=== PATIENT | male | born 1995 | race Caucasian/White ===

== ENCOUNTER → 2018-03-06 | Outpatient (CLI) | payer OTHER ==
[~2018-03-06] MED LIST: CIPROFLOXACIN500 M1 PO; FLAGYL500 MG PO; FLOMAX0.4 MG PO; IBUPROFEN 800800 M1 PO; LAMICTAL100 MG PO; NOHOMEMEDICATIONS; ONDANSETRON HCL4 M2 PO; PYRIDIUM200 MG PO; ULTRAM 50MG TAB50 MG PO
[2018-03-06 12:17] LABS: ABSOLUTE BASOPHILS 0.1 thou/uL (0.0-0.2); ABSOLUTE EOSINOPHILS 0.1 thou/uL (0.0-0.7); ABSOLUTE LYMPHOCYTES 3.6 thou/uL (0.8-5.3); ABSOLUTE NEUTROPHILS 4.8 thou/uL (1.6-8.1); BASOPHILS 1.1 %; HEMATOCRIT 37.9 % (42.0-52.0); HEMOGLOBIN 11.9 gm/dL (14.0-18.0); LYMPHOCYTES 37.4 %; MCH 23.6 pg (26.0-34.0); MCHC 31.4 g/dL (28.0-37.0); MCV 74.9 fL (80.0-100.0); MONOCYTES 10.4 %; MPV 7.2 fl. (7.2-11.1); NUCLEATED RBCS 0 /100WBC; PLATELET COUNT* 417 thou/uL (150-400); POLYS 50.1 %; RBC 5.06 mil/uL (4.50-6.00); RDW-CV 15.7 % (10.5-14.5); WBC 9.7 thou/uL (4.0-11.0)
[2018-03-06 12:35] LABS: ALBUMIN 3.8 g/dL (3.4-5.0); CREATININE 1.1 mg/dL (0.6-1.3); TOTAL BILIRUBIN 0.4 mg/dL (<0.1-1.0); TOTAL PROTEIN 7.6 g/dL (6.4-8.2)
[2018-03-07 16:24] LABS: % SATURATION 4 % (20-39); IRON 22 ug/dL (50-175)
== END ==
LOC: M.LAB 11:17
PROVIDERS: Family Medicine
DX: K92.0 Hematemesis (principal)

== ENCOUNTER → 2019-11-11 | Outpatient (CLI) | payer BC | LOC: M.ULTRA 12:55 | PROVIDERS: ATTEND Family Medicine | DX: K76.0 Fatty (change of) liver, not elsewhere classified (principal); K92.0 Hematemesis; R19.7 Diarrhea, unspecified ==

== ENCOUNTER → 2019-11-18 | Outpatient (CLI) | payer BC | LOC: M.MRI 07:25 | PROVIDERS: ATTEND Family Medicine | DX: K76.0 Fatty (change of) liver, not elsewhere classified (principal); R19.00 Intra-abdominal and pelvic swelling, mass and lump, unspecified site; K76.89 Other specified diseases of liver ==

== ENCOUNTER 2020-01-19 02:14 | Emergency (ER) | payer BC ==
[~2020-01-19] VITALS: Ht 175.3 cm; Wt 117.9 kg
[2020-01-19 02:34] LABS: URINE BILIRUBIN NEGATIVE (Negative); URINE BLOOD 3+ (Negative); URINE CLARITY CLEAR; URINE COLOR YELLOW; URINE GLUCOSE-RANDOM NEGATIVE (Negative); URINE KETONES NEGATIVE (Negative); URINE LEUKOCYTES-REFLEX NEGATIVE (Negative); URINE NITRITE-REFLEX NEGATIVE (Negative); URINE PROTEIN 1+ (Negative); URINE SPECIFIC GRAVITY >= 1.030 (1.005-1.030); URINE UROBILINOGEN 0.2 E.U./dl (0.2-1.0)
[2020-01-19 02:35] LABS: HEMATOCRIT 42.9 % (42.0-52.0); HEMOGLOBIN 14.2 gm/dL (14.0-18.0); MCH 26.9 pg (26.0-34.0); MCHC 33.1 g/dL (28.0-37.0); MCV 81.3 fL (80.0-100.0); MPV 7.8 fl. (7.2-11.1); NUCLEATED RBCS 0 /100WBC; PLATELET COUNT* 361 thou/uL (150-400); RBC 5.28 mil/uL (4.50-6.00); RDW-CV 14.3 % (10.5-14.5); WBC 13.2 thou/uL (4.0-11.0)
[2020-01-19 02:44] LABS: CALCIUM 9.9 mg/dL (8.5-10.1); CREATININE 1.6 mg/dL (0.6-1.3); POTASSIUM 4.3 mmol/L (3.5-5.1)
[2020-01-19 03:25] LABS: CASTS None Seen /LPF (None Seen); SQUAMOUS 0-3 Few /LPF (0-3); URINE RBC >20 Many /HPF (0-2); URINE WBC-REFLEX 0-5 Rare /HPF (0-5)
[2020-01-19 03:27] LABS: AMORPHOUS URATES Moderate /LPF (None Seen); BACTERIA-REFLEX 1-9 Few /HPF (None Seen)
[2020-01-19 03:31] LABS: ABSOLUTE LYMPHOCYTES 1.5 thou/uL (0.8-5.3); ABSOLUTE MONOCYTES 0.4 thou/uL (0.0-1.2); ABSOLUTE NEUTROPHILS 11.4 thou/uL (1.6-8.1); PLATELET ESTIMATE ADEQUATE
[2020-01-19] MEDS ORDERED: FLOMAX0.4 MG PO (04:08)
[2020-01-19] MEDS ORDERED: ZOFRAN ODT4 MG PO (04:08)
[2020-01-19] MEDS ORDERED: HYDROCODON-ACE1 EAC8 PO (04:08)
[2020-01-19 04:12] VITALS: BP 118/68
== END 2020-01-19 04:12 | disposition home or self-care (01) ==
LOC: M.ERS 02:14
PROVIDERS: Emergency Medicine
DX: N20.0 Calculus of kidney (principal)

== ENCOUNTER 2020-02-08 09:05 | Emergency (ER) | payer BC ==
[~2020-02-08] VITALS: Ht 177.8 cm; Wt 117.9 kg
[~2020-02-08 09:05] MED LIST changes: +HYDROCODON-ACE1 EAC8 PO; +ZOFRAN ODT4 MG PO
[2020-02-08 09:43] LABS: ABSOLUTE BASOPHILS 0.1 thou/uL (0.0-0.2); ABSOLUTE LYMPHOCYTES 1.5 thou/uL (0.8-5.3); ABSOLUTE MONOCYTES 0.8 thou/uL (0.0-1.2); ABSOLUTE NEUTROPHILS 10.1 thou/uL (1.6-8.1); BASOPHILS 0.5 %; EOSINOPHILS 0.1 %; HEMATOCRIT 38.9 % (42.0-52.0); HEMOGLOBIN 12.6 gm/dL (14.0-18.0); LYMPHOCYTES 12.1 %; MCH 25.9 pg (26.0-34.0); MCHC 32.4 g/dL (28.0-37.0); MONOCYTES 6.7 %; MPV 7.6 fl. (7.2-11.1); NUCLEATED RBCS 0 /100WBC; PLATELET COUNT* 439 thou/uL (150-400); POLYS 80.6 %; RBC 4.86 mil/uL (4.50-6.00); RDW-CV 14.8 % (10.5-14.5); WBC 12.6 thou/uL (4.0-11.0)
[2020-02-08 09:53] LABS: CALCIUM 9.1 mg/dL (8.5-10.1); CREATININE 1.9 mg/dL (0.6-1.3); POTASSIUM 3.8 mmol/L (3.5-5.1)
[2020-02-08 10:01] LABS: ALBUMIN 4.1 g/dL (3.4-5.0); TOTAL BILIRUBIN 0.7 mg/dL (<0.1-1.0); TOTAL PROTEIN 8.5 g/dL (6.4-8.2)
[2020-02-08] MEDS ORDERED: ZOFRAN ODT4 MG SUBLING (10:30)
[2020-02-08] MEDS ORDERED: CIPROFLOXACIN500 M1 PO (10:30)
[2020-02-08 11:05] VITALS: BP 185/70
== END 2020-02-08 11:06 | disposition home or self-care (01) ==
LOC: M.ERS 09:05
PROVIDERS: Family Medicine
DX: N20.0 Calculus of kidney (principal)